=== PATIENT | female | born 1970 | race Caucasian/White ===

== ENCOUNTER 2022-01-12 16:52 | Emergency (ER) | payer BC, MEDICARE ==
[~2022-01-12] VITALS: Ht 160 cm; Wt 69.9 kg
[~2022-01-12 16:52] MED LIST: BENZONATATE200 MG PO; MOTRIN800 MG PEG; NORVASC5 MG PO; REMERON45 MG PO; ULTRAM50 MG PO
[2022-01-12] MEDS ORDERED: KETOROLAC TROMETHAMINE 60 MG/2 ML VIAL IM ONE (17:45)
[2022-01-12] MEDS ORDERED: DEXAMETHASONE SOD PHOS 10 MG/1 ML VIAL IV ONE (17:45)
[2022-01-12] MEDS ORDERED: KETOROLAC TROME10 MG PEG (17:47)
[2022-01-12] MEDS ORDERED: ACETAMINOPHEN-1 EAC4 PO (17:47)
[2022-01-12] MEDS ORDERED: PREDNISONE50 MG PO (17:47)
[2022-01-12] MEDS ORDERED: METHOCARBAMOL750 MG PO (17:49)
[2022-01-12] MEDS ORDERED: ZESTRIL10 MG PO (17:51)
== END 2022-01-12 18:25 | disposition home or self-care (01) ==
LOC: ER 16:58
DX: M54.42 Lumbago with sciatica, left side (principal); Z85.71 Personal history of Hodgkin lymphoma
CPT/HCPCS: 99283; J1100; J1885

== ENCOUNTER 2025-01-21 18:59 | Emergency (ER) | payer SELFPAY ==
[~2025-01-21] VITALS: Ht 160 cm; Wt 69.9 kg
[~2025-01-21 18:59] MED LIST changes: +ACETAMINOPHEN-1 EAC4 PO; +KETOROLAC TROME10 MG PEG; +METHOCARBAMOL750 MG PO; +PREDNISONE50 MG PO; +ZESTRIL10 MG PO
[2025-01-21 19:15] VITALS: TEMP 98.1
[2025-01-21 19:43] LABS: BASOPHILS % 0.7 % (0.0-1.0); EOSINOPHILS % 0.8 % (0.0-6.0); LYMPHOCYTES % 25.2 % (18.0-39.1); MONOCYTES % 8.3 % (4.4-11.3); NEUTROPHILS % 64.4 % (38.7-80.0); RED CELL DISTRIBUTION WIDTH 13.5 % (11.7-14.4)
[2025-01-21 20:05] LABS: EST GLOMERULAR FILTRATION RATE 49.0 ML/MIN (>=60)
[2025-01-21 20:23] LABS: AMPHETAMINES SCREEN,URINE POSITIVE (NEGATIVE); CANNABINOIDS SCREEN,URINE POSITIVE (NEGATIVE); COCAINE SCREEN,URINE NEGATIVE (NEGATIVE); METHADONE SCREEN, URINE NEGATIVE (NEGATIVE); OPIATES SCREEN,URINE NEGATIVE (NEGATIVE)
[2025-01-21] MEDS: DIPHENHYDRAMINE HCL INJ 50 MG/ML VIAL IV STA (20:33)
[2025-01-21] MEDS: SODIUM CHLORIDE 0.9% 1000ML 1,000 ML IV STA (20:33)
[2025-01-21] MEDS: METOCLOPRAMIDE HCL 10 MG/2ML VIAL IV STA (20:35)
[2025-01-21] MEDS: KETOROLAC TROMETHAMINE 30 MG/ML VIAL IV STA (20:35)
[2025-01-21] MEDS: METHYLPREDNISOLONE SOD SUCC 125 MG/2ML VIAL IV STA (20:43)
[2025-01-21 20:53] VITALS: PULSE 75; RESP 19
[2025-01-21 21:54] VITALS: BP 156/82; PULSE 66; RESP 17; TEMP 97.7; O2SAT 98
== END 2025-01-21 22:09 | disposition home or self-care (01) ==
LOC: ER 19:09
DX: R51.9 Headache, unspecified (principal); F15.10 Other stimulant abuse, uncomplicated; M54.2 Cervicalgia; Z85.72 Personal history of non-Hodgkin lymphomas
CPT/HCPCS: 36415; 70450; 72125; 80053; 80307; 80320; 85025; 99284; J1200; J1885; J2765; J2919; J7030